=== PATIENT | female | born 1995 | race Caucasian/White ===

== ENCOUNTER 2017-02-18 18:44 | Emergency (ER) | payer SELFPAY ==
[~2017-02-18] VITALS: Ht 154.9 cm; Wt 101.0 kg
[2017-02-18] MEDS ORDERED: KETOROLAC TROMETHAMINE 60 MG/2 ML VIAL IM ONE (19:45)
[2017-02-18 20:23] VITALS: BP 128/80
== END 2017-02-18 20:44 | disposition home or self-care (01) ==
LOC: EMS 18:45
DX: S60.222A Contusion of left hand, initial encounter (principal); F17.210 Nicotine dependence, cigarettes, uncomplicated; V89.2XXA Person injured in unspecified motor-vehicle accident, traffic, initial encounter; Y93.89 Activity, other specified; Y92.410 Unspecified street and highway as the place of occurrence of the external cause; Y99.8 Other external cause status
CPT/HCPCS: 73130; 96372; 99284; J1885